=== PATIENT | female | born 1950 | race African-American/Black ===

== ENCOUNTER → 2017-03-22 | Outpatient (CLI) | payer MEDICARE, BC ==
[~2017-03-22] MED LIST: ACTOS PO; ALBUTEROL17 GM INH; BENAZEPRIL PO; FLEXERIL PO; FLOVENT HFA12 GM INH; KLONOPIN PO; MEDROL PO; REGLAN PO; REQUIP1 MG PO; SEREVENT D50 MCG/DIS PO; ULTRAM PO
--- NOTE | ~2017-03-22 | NM22 ---
[facility] A Service of [facility] & [facility] RADIOLOGY TEXT RESULTS PATIENT: MILLER HUNTER LOCATION: [facility] : 48 UNIT #: [id number] AGE: [address]: Kalyani Saldaña MD SEX: F ORDER DR: [id number] [facility] [address] [place], [place] [address] [id number] O MR#: [id number] Acc #: [id number] NAME: MILLER HUNTER : 1950 SEX: F STUDY DATE/TIME: 03/22/2017 13:55 UNIT: [facility] ROOM: STUDY DESCRIPTION: NM Hepatobiliary W GB Pharm Attending Physician: Kalyani Saldaña M.D. Referring Physician: Kalyani Saldaña M.D. Ordering Physician: Kalyani Saldaña M.D. Primary Care Physician: Roly Woods M.D. MEDICAL IMAGING REPORT This report is preliminary unless electronic signature is present EXAM HIDA scan with Kinevac CCK 03/22/2017 HISTORY Right upper quadrant abdominal pain with nausea and vomiting every night for 3 months. Low abdominal pain, epigastric pain and intermittent back pain. FINDINGS The patient received an intravenous injection of 5.18 mCi of Tc-99m tagged Choletec for hepatobiliary imaging. 1 hour following the injection of the radiopharmaceutical, the patient received an intravenous injection of 1.7 mcg of Kinevac. There was homogeneous distribution of the radiotracer throughout the liver. Gallbladder activity was seen by 15 minutes post-injection of the radiopharmaceutical. Following Kinevac injection, the gallbladder ejection fraction was 75.5% (normal is greater than 30%). IMPRESSION Normal HIDA scan with gallbladder ejection fraction of 75.5%. Dictated by... Eric Lyon M.D. THIS IS AN ELECTRONICALLY VERIFIED REPORT Eric Lyon M.D. at 03/23/2017 7:18 AM KRT/pcl TD: 03/22/2017 23:31 JOB #: [id number] MEDICAL IMAGING REPORT [facility] A Service of [facility] & [facility] RADIOLOGY TEXT RESULTS PATIENT: MILLER HUNTER LOCATION: [facility] #: [id number] : 48 UNIT #: [id number] AGE: [address]: Kalyani Saldaña MD SEX: F ORDER DR: Page 1 of 1 COPY
== END | disposition home or self-care (01) ==
LOC: CNUC 13:15
DX: R10.11 Right upper quadrant pain (principal); R10.13 Epigastric pain
CPT/HCPCS: 78227; A9537; J2805